=== PATIENT | female | born 1995 | race African-American/Black ===

== ENCOUNTER 2018-02-18 14:48 | Emergency (ER) | payer OTHER ==
[~2018-02-18] VITALS: Ht 165.1 cm; Wt 68.0 kg
[2018-02-18 14:51] VITALS: BP 143/75
== END 2018-02-18 15:19 ==
LOC: EDBD 14:51 → ER 14:51
DX: S50.11XA Contusion of right forearm, initial encounter (principal); S00.81XA Abrasion of other part of head, initial encounter; Y04.0XXA Assault by unarmed brawl or fight, initial encounter; Y93.89 Activity, other specified; Y92.89 Other specified places as the place of occurrence of the external cause; Y99.8 Other external cause status
CPT/HCPCS: 99283; A4606; Z7610

== ENCOUNTER 2020-04-26 03:29 | Emergency (ER) | payer MEDICAID ==
[~2020-04-26] VITALS: Ht 165.1 cm; Wt 54.4 kg
[2020-04-26 03:55] VITALS: BP 131/80
--- NOTE | 2020-04-26 04:03 | NUR ---
DR GALICIA AT BED SIDE
--- NOTE | 2020-04-26 04:11 | NUR ---
PT IS MEDICALLY STABLE FOR D/C. Patient given written and verbal discharge instructions. Patient verbalizes understanding of instructions. Patient is ambulatory with steady gait. Refuses offer of [facility] placement. Patient given list of available shelters in surrounding area. has proper clothing on. snacks provided. Patient discharged to home in stable condition. Written and verbal after care instructions given. Patient verbalizes understanding of instruction.
== END 2020-04-26 04:13 | disposition home or self-care (01) ==
LOC: ER 03:33
DX: T19.2XXA Foreign body in vulva and vagina, initial encounter (principal); F17.200 Nicotine dependence, unspecified, uncomplicated; Z59.0 Homelessness; W45.8XXA Other foreign body or object entering through skin, initial encounter; Y93.89 Activity, other specified; Y92.89 Other specified places as the place of occurrence of the external cause; Y99.8 Other external cause status

== ENCOUNTER 2020-10-15 04:42 | Emergency (ER) | payer SELFPAY ==
[~2020-10-15] VITALS: Ht 165.1 cm; Wt 49.9 kg
[2020-10-15 04:43] VITALS: BP 128/85
== END 2020-10-15 05:30 | disposition home or self-care (01) ==
LOC: ER 04:45
DX: T19.2XXA Foreign body in vulva and vagina, initial encounter (principal); F10.10 Alcohol abuse, uncomplicated; F17.200 Nicotine dependence, unspecified, uncomplicated; Y90.9 Presence of alcohol in blood, level not specified; Z59.0 Homelessness; W45.8XXA Other foreign body or object entering through skin, initial encounter; Y93.89 Activity, other specified; Y92.89 Other specified places as the place of occurrence of the external cause; Y99.8 Other external cause status

== ENCOUNTER → 2020-10-22 | Emergency (ER) | payer OTHER ==
[~2020-10-22] VITALS: Ht 165.1 cm; Wt 52.2 kg
[2020-10-22 00:43] VITALS: BP 106/78
--- NOTE | 2020-10-22 01:10 | NUR ---
PT CLEARED FOR DISCAHRGE UNDER [employer]ODY in stable condition. Written and verbal after care instructions given. Patient verbalizes understanding of instruction. pt ambulatory with steady gait. vss.
== END | disposition home or self-care (01) ==
LOC: ER 00:37
DX: F15.10 Other stimulant abuse, uncomplicated (principal); F17.210 Nicotine dependence, cigarettes, uncomplicated; F10.10 Alcohol abuse, uncomplicated; Y90.9 Presence of alcohol in blood, level not specified; Z02.89 Encounter for other administrative examinations; Z59.0 Homelessness

== ENCOUNTER 2021-04-25 20:12 | Emergency (ER) | payer MEDICAID, OTHER ==
[~2021-04-25] VITALS: Ht 165.1 cm; Wt 76.2 kg
[2021-04-25 21:20] VITALS: BP 113/76
--- NOTE | 2021-04-25 21:47 | NUR ---
URINE COLLECTED AND SENT TO THE LAB.
[2021-04-25] MEDS ORDERED: NAPROXEN 250 MG TABLET ONE (22:58)
[2021-04-25] MEDS ORDERED: HYDROCODONE/APAP 5/325MG TABLET ONE (22:58)
[2021-04-25] MEDS ORDERED: KETOROLAC TROMETHAMINE INJ 30 MG/ML VIAL IM ONE (23:00)
[2021-04-25] MEDS: HYDROCODONE/APAP 5/325MG TABLET PO ONE (23:06)
[2021-04-25] MEDS: NAPROXEN 250 MG TABLET PO ONE (23:06)
--- NOTE | 2021-04-25 23:15 | NUR ---
Patient discharged to home in stable condition. Written and verbal after care instructions given. Patient verbalizes understanding of instruction.
[2021-04-25] MEDS ORDERED: POLY119P NG (23:35)
[2021-04-25] MEDS ORDERED: HC A10FO RC (23:35)
== END 2021-04-25 23:43 | disposition home or self-care (01) ==
LOC: ER 20:13
DX: K64.8 Other hemorrhoids (principal); F17.200 Nicotine dependence, unspecified, uncomplicated; Z59.00 Homelessness unspecified; Z90.89 Acquired absence of other organs; Z98.890 Other specified postprocedural states